=== PATIENT | female | born 1975 | race Hispanic/Latino ===

== ENCOUNTER → 2024-09-30 | Day surgery (SDC) | payer OTHER, BC ==
[~2024-09-30] MED LIST: FENTANYL CITRATE/PF 100MCG/2 ML INJ ONE; LEVOTHYROXINE50 MCG PO; LIDOCAINE HCL 2% LOCAL INJ 5 ML SDV VIAL INJ ONE; METOCLOPRAMIDE HCL 10 MG/2ML VIAL ONE; OMEPRAZOLE PO; PROPOFOL IV EMULSION 50 ML IV ONE; ROSUVASTATIN CA10 MG PO
[2024-09-30] MEDS: LACTATED RINGER'S 1,000 ML ONE (12:48)
[2024-09-30 15:45] VITALS: BP 104/75; PULSE 74; RESP 17; TEMP 97.2; O2SAT 98
== END | disposition home or self-care (01) ==
LOC: OR 12:00
PROVIDERS: ATTEND Internal Medicine Gastroenterology
DX: K29.70 Gastritis, unspecified, without bleeding (principal); K20.90 Esophagitis, unspecified without bleeding; K21.9 Gastro-esophageal reflux disease without esophagitis; K59.00 Constipation, unspecified; K64.8 Other hemorrhoids; E78.5 Hyperlipidemia, unspecified; E03.9 Hypothyroidism, unspecified; Z79.899 Other long term (current) drug therapy
CPT/HCPCS: 43239; 45378; J2003; J2470; J2704; J2765; J3010; J7121